=== PATIENT | female | born 1975 | race Caucasian/White ===

== ENCOUNTER → 2018-09-25 | Outpatient (CLI) | payer OTHER ==
--- NOTE | 2018-09-25 11:55 | MM ---
Reason for exam: screening (asymptomatic). Last mammogram was performed 2 years and 5 months ago. History: Reduction of the left breast. Reduction of the right breast. Physical Findings: A clinical breast exam by your physician is recommended on an annual basis and results should be correlated with mammographic findings. MG Screening Mammo w CAD Bilateral CC and MLO view(s) were taken. Prior study comparison: April 12, 2016, bilateral MG diagnostic mammo w CAD JOSE. September 15, 2011, bilateral digital screening mammo w/CAD. There are scattered fibroglandular densities. There are benign appearing round dystrophic calcifications bilaterally. There is no discrete abnormality. ASSESSMENT: Benign, BI-RAD 2 RECOMMENDATION: Routine screening mammogram of both breasts in 1 year.
== END | disposition home or self-care (01) ==
LOC: RADMAMWWP 07:49
PROVIDERS: ATTEND Family Medicine
DX: Z12.31 Encounter for screening mammogram for malignant neoplasm of breast (principal)
CPT/HCPCS: 77067

== ENCOUNTER → 2019-06-06 | Outpatient (CLI) | payer OTHER ==
--- NOTE | 2019-06-06 15:03 | XR ---
Cervical spine HISTORY: Cervical disc disorder with radiculopathy, neck pain 7 views of the cervical spine Correlation to prior exam 11/29/2013 Cervical vertebral bodies show preserved height and bone mineralization. Minimal retrolisthesis grade 1 C5-6 similar to prior exam. There are facet arthropathy changes. Loss of disc height has progresse d at C5-6. There is associated spondylosis C5-6, C6-7, interval loss of disc height C6-7 with spondyl osis. Prevertebral soft tissues are within normal limits. C5-6 and C6-7 shows bilateral foraminal enc roachment. IMPRESSION: Degenerative disease, facet arthropathy, foraminal encroachment.
== END | disposition home or self-care (01) ==
LOC: RADXRMAIN 14:07
PROVIDERS: ATTEND Family Medicine
DX: M47.22 Other spondylosis with radiculopathy, cervical region (principal); M46.92 Unspecified inflammatory spondylopathy, cervical region
CPT/HCPCS: 72050